=== PATIENT | male | born 1950 | race Caucasian/White ===

== ENCOUNTER → 2017-02-24 | Outpatient (CLI) | payer MEDICARE ==
[~2017-02-24] MED LIST: ATOR20TA9 PO; CARV-39 PO; FURO20TA3 PO; HYDR-3307 PO; LISI-167 PO; METO50TA82 PO; REGADENOSON 0.4 MG/5 ML SYRINGE ONE
== END | disposition home or self-care (01) ==
LOC: CFH 07:21
PROVIDERS: ATTEND Internal Medicine Cardiovascular Disease
DX: I35.8 Other nonrheumatic aortic valve disorders (principal); I37.1 Nonrheumatic pulmonary valve insufficiency; I25.10 Atherosclerotic heart disease of native coronary artery without angina pectoris; I25.5 Ischemic cardiomyopathy; I10 Essential (primary) hypertension; E78.5 Hyperlipidemia, unspecified; Z79.01 Long term (current) use of anticoagulants; Z95.1 Presence of aortocoronary bypass graft; Z87.891 Personal history of nicotine dependence
CPT/HCPCS: 78452; 93017; 93306; A9502; J2785

== ENCOUNTER → 2017-03-17 | Outpatient (CLI) | payer MEDICARE ==
[~2017-03-17] MED LIST changes: -REGADENOSON 0.4 MG/5 ML SYRINGE ONE
== END | disposition home or self-care (01) ==
LOC: PETCFH 09:35
PROVIDERS: ATTEND Internal Medicine Cardiovascular Disease
DX: I25.5 Ischemic cardiomyopathy (principal)
CPT/HCPCS: 78472; A9560

== ENCOUNTER 2017-03-24 09:49 | Inpatient (IN) | payer MEDICARE ==
[~2017-03-24] VITALS: Ht 172.7 cm; Wt 75.9 kg
[2017-03-24] MEDS ORDERED: SODIUM CHLORIDE FLUSH 10ML SYR IVF ONE (10:30)
[2017-03-24 10:58] LABS: HEMATOCRIT 39.5 % (39.2-51.8); HEMOGLOBIN 13.5 g/dL (13.7-18.0); WHITE BLOOD COUNT 8.5 x10^3/uL (3.4-10)
[2017-03-24 11:11] LABS: BLOOD UREA NITROGEN 18 mg/dL (7-18)
[2017-03-24 11:17] LABS: ASPARTATE AMINO TRANSFERASE 23 U/L (15-37)
[2017-03-24 11:18] LABS: IS PT STATUS REG ER OR PRE ER? YES
[2017-03-24] MEDS ORDERED: ASPI-496 PO (11:56)
[2017-03-24] MEDS ORDERED: ATOR-2 PO (11:57)
[2017-03-24] MEDS ORDERED: SODIUM CHLORIDE FLUSH 10ML SYR IVF PRN (13:00)
[2017-03-24] MEDS ORDERED: ONDANSETRON ODT 4 MG PO PRN (14:00)
[2017-03-24] MEDS ORDERED: DOCUSATE 100 MG CAPSULE PO PRN (14:00)
[2017-03-24] MEDS ORDERED: HYDROcodone/APAP 10/325 MG TABLET PO SCH ×2 (14:00→15:00)
[2017-03-24] MEDS ORDERED: LORazepam 2 MG/ML, 1ML IVPush PRN (14:00)
[2017-03-24] MEDS: ASPIRIN 325 MG TABLET PO SCH (14:00)
[2017-03-24 14:23] LABS: IS PT STATUS REG ER OR PRE ER? NO
[2017-03-24] MEDS ORDERED: HYDROcodone/APAP 10/325 MG TABLET PO PRN (15:00)
[2017-03-24 19:32] VITALS: BP 138/83
[2017-03-24] MEDS: CARVEDILOL 25 MG TABLET PO SCH (21:21)
[2017-03-24] MEDS: ATORVASTATIN 80 MG TABLET PO SCH (21:21)
[2017-03-24] MEDS: ENOXAPARIN 40 MG/0.4 ML SQ SCH (21:22)
[2017-03-25 01:57] VITALS: BP 123/80
[2017-03-25] MEDS: ASPIRIN 325 MG TABLET PO SCH (04:38)
[2017-03-25 05:51] LABS: HEMATOCRIT 41.7 % (39.2-51.8); HEMOGLOBIN 14.4 g/dL (13.7-18.0); WHITE BLOOD COUNT 7.7 x10^3/uL (3.4-10)
[2017-03-25 06:12] LABS: BLOOD UREA NITROGEN 17 mg/dL (7-18)
[2017-03-25 08:10] VITALS: BP 115/79
[2017-03-25] MEDS: POTASSIUM CHLORIDE 10 MEQ TABLET.ER PO SCH (09:04)
[2017-03-25] MEDS: FUROSEMIDE 20 MG TABLET PO SCH (09:04)
[2017-03-25] MEDS: CARVEDILOL 25 MG TABLET PO SCH ×2 (09:04→21:50)
[2017-03-25] MEDS: METOPROLOL TARTRATE 50 MG TABLET PO SCH (09:05)
[2017-03-25] MEDS: LISINOPRIL 10 MG TABLET PO SCH (09:05)
[2017-03-25] MEDS: CLOPIDOGREL 75 MG TABLET PO SCH (12:18)
[2017-03-25 14:35] VITALS: BP 142/78
[2017-03-25 20:38] VITALS: BP 122/72
[2017-03-25] MEDS: ENOXAPARIN 40 MG/0.4 ML SQ SCH (21:50)
[2017-03-25] MEDS: ATORVASTATIN 80 MG TABLET PO SCH (21:50)
[2017-03-26 01:30] VITALS: BP 116/76
[2017-03-26] MEDS: ASPIRIN 325 MG TABLET PO SCH (05:17)
[2017-03-26 05:18] VITALS: BP 122/70
[2017-03-26 05:56] LABS: HEMATOCRIT 41.8 % (39.2-51.8); HEMOGLOBIN 14.4 g/dL (13.7-18.0); WHITE BLOOD COUNT 7.3 x10^3/uL (3.4-10)
[2017-03-26 06:06] LABS: BLOOD UREA NITROGEN 18 mg/dL (7-18)
[2017-03-26 07:49] VITALS: BP 122/82
[2017-03-26] MEDS: METOPROLOL TARTRATE 50 MG TABLET PO SCH (07:52)
[2017-03-26] MEDS ORDERED: MIDAZOLAM 1 MG/ML, 2ML ONE (08:05)
[2017-03-26] MEDS ORDERED: FENTANYL PF 100 MCG/2ML ONE ×3 (08:05→11:37)
[2017-03-26] MEDS ORDERED: ROCURONIUM 10 MG/ML,10ML ONE ×4 (08:11→08:38)
[2017-03-26] MEDS ORDERED: ONDANSETRON 2MG/ML, 2ML ONE (08:11)
[2017-03-26] MEDS ORDERED: GLYCOPYRROLATE 0.2MG/1ML, 5ML ONE (08:11)
[2017-03-26] MEDS ORDERED: CEFAZOLIN 1,000 MG ONE (08:11)
[2017-03-26] MEDS ORDERED: SUCCINYLCHOLINE 20 MG/ML, 10ML ONE (08:11)
[2017-03-26] MEDS ORDERED: PROPOFOL 10 MG/ML, 20ML ONE (08:11)
[2017-03-26] MEDS ORDERED: DEXAMETHASONE 4 MG/ML, 1ML ONE (08:11)
[2017-03-26] MEDS ORDERED: NEOSTIGMINE 1 MG/ML, 10ML ONE (08:11)
[2017-03-26] MEDS ORDERED: PROTAMINE SULFATE 10 MG/ML, 5ML ONE (08:17)
[2017-03-26] MEDS ORDERED: LIDOCAINE/PF 1%, 30ML ONE (08:17)
[2017-03-26] MEDS ORDERED: PAPAVERINE 30 MG/ML, 2ML ONE (08:17)
[2017-03-26] MEDS ORDERED: BACITRACIN 50,000 UNIT ONE (08:18)
[2017-03-26] MEDS ORDERED: HEPARIN 1,000 UNITS/ML, 10ML ONE (08:18)
[2017-03-26] MEDS ORDERED: THROMBIN 20,000 UNIT VIAL TP ONE (08:18)
[2017-03-26] MEDS ORDERED: EPINEPHRINE 1 MG/ML, 1ML ONE (08:24)
[2017-03-26] MEDS ORDERED: BUPIVACAINE/PF 0.5% ONE (08:24)
[2017-03-26] MEDS ORDERED: EPHEDRINE 50 MG/ML, 1ML ONE (08:38)
[2017-03-26] MEDS: CARVEDILOL 25 MG TABLET PO SCH (09:00)
[2017-03-26] MEDS: CLOPIDOGREL 75 MG TABLET PO SCH (09:00)
[2017-03-26] MEDS: LISINOPRIL 10 MG TABLET PO SCH (09:00)
[2017-03-26] MEDS: FUROSEMIDE 20 MG TABLET PO SCH (09:00)
[2017-03-26] MEDS ORDERED: EPHEDRINE 50 MG/ML, 1ML IVPush PRN (10:30)
[2017-03-26] MEDS ORDERED: HYDROmorphone 1 MG/ML, 1ML IV PRN (10:30)
[2017-03-26] MEDS ORDERED: ALBUTEROL/IPRATROPIUM 2.5MG/0.5MG, 3 ML NPPB PRN (10:30)
[2017-03-26] MEDS ORDERED: ONDANSETRON 2MG/ML, 2ML IVPush PRN (10:30)
[2017-03-26] MEDS ORDERED: ALBUTEROL SULFATE 2.5 MG/3 ML NPPB PRN (10:30)
[2017-03-26] MEDS ORDERED: HYDROcodone/APAP 7.5-325MG/15ML UDC PO PRN (10:30)
[2017-03-26] MEDS ORDERED: OXYcodone 5 MG/5 ML ORAL.SOL UDC PO PRN (10:30)
[2017-03-26] MEDS ORDERED: PROMETHAZINE 25 MG/ML, 1ML IV PRN (10:30)
[2017-03-26] MEDS ORDERED: DIAZEPAM 5 MG/ML, 2ML IVPush PRN (10:30)
[2017-03-26] MEDS ORDERED: METOPROLOL 1 MG/ML, 5ML IV PRN (10:30)
[2017-03-26] MEDS ORDERED: MEPERIDINE/PF 25MG/0.5ML IVPush PRN (10:30)
[2017-03-26] MEDS ORDERED: hydrALAzine 20 MG/ML, 1ML IV PRN (10:30)
[2017-03-26] MEDS ORDERED: MIDAZOLAM 1 MG/ML, 2ML IV PRN (10:30)
[2017-03-26] MEDS ORDERED: LABETALOL 5MG/ML, 20ML IV PRN (10:30)
[2017-03-26] MEDS ORDERED: ACETAMINOPHEN 325 MG TABLET PO PRN (10:30)
[2017-03-26] MEDS: LACTATED RINGERS 1,000 ML IV SCH ×2 (11:30→22:27)
[2017-03-26] MEDS ORDERED: LABETALOL 5MG/ML 40ML VIAL IVPush PRN (11:30)
[2017-03-26] MEDS ORDERED: OXYcodone 5 MG/5 ML ORAL.SOL UDC ONE (11:37)
[2017-03-26] MEDS ORDERED: ACETAMINOPHEN 650 MG/20.3 ML UDC ONE (11:37)
[2017-03-26] MEDS: FENTANYL PF 100 MCG/2ML IV PRN ×2 (11:41→13:20)
[2017-03-26] MEDS: POTASSIUM CHLORIDE 10 MEQ TABLET.ER PO SCH (14:45)
[2017-03-26] MEDS: HYDROcodone/APAP 5/325 TABLET PO PRN ×2 (14:45→20:35)
[2017-03-26 15:05] VITALS: BP 124/78
[2017-03-26 20:26] VITALS: BP 105/68
[2017-03-26] MEDS: ATORVASTATIN 80 MG TABLET PO SCH (20:35)
[2017-03-26] MEDS: ENOXAPARIN 40 MG/0.4 ML SQ SCH (20:36)
[2017-03-27 00:46] VITALS: BP 108/66
[2017-03-27 05:16] LABS: HEMATOCRIT 37.2 % (39.2-51.8); HEMOGLOBIN 12.7 g/dL (13.7-18.0); WHITE BLOOD COUNT 12.1 x10^3/uL (3.4-10)
[2017-03-27 05:17] LABS: BLOOD UREA NITROGEN 18 mg/dL (7-18)
[2017-03-27] MEDS: ASPIRIN 325 MG TABLET PO SCH (05:35)
[2017-03-27 05:37] VITALS: BP 104/58
[2017-03-27 07:00] VITALS: BP 104/62
[2017-03-27] MEDS: LACTATED RINGERS 1,000 ML IV SCH (07:42)
[2017-03-27] MEDS: POTASSIUM CHLORIDE 10 MEQ TABLET.ER PO SCH (07:49)
[2017-03-27] MEDS: FUROSEMIDE 20 MG TABLET PO SCH (07:49)
[2017-03-27] MEDS: CLOPIDOGREL 75 MG TABLET PO SCH (07:49)
[2017-03-27] MEDS ORDERED: POTA10TA5 PO (11:56)
[2017-03-27] MEDS ORDERED: CLOP75TA PO (11:56)
== END 2017-03-27 13:22 | disposition home or self-care (01) | DRG 38 ==
LOC: ED 10:25 → EDIP 12:51 → 4WST 14:13
PROVIDERS: ADMIT Internal Medicine; ATTEND Internal Medicine
PROC: 03UL0JZ Supplement Left Internal Carotid Artery with Synthetic Substitute, Open Approach (ICD-10-PCS; 2017-03-26)
PROC: 03CL0ZZ Extirpation of Matter from Left Internal Carotid Artery, Open Approach (ICD-10-PCS; principal; 2017-03-26 08:30)
DX: I65.22 Occlusion and stenosis of left carotid artery (principal); R71.0 Precipitous drop in hematocrit; D17.79 Benign lipomatous neoplasm of other sites; G45.9 Transient cerebral ischemic attack, unspecified; E78.5 Hyperlipidemia, unspecified; I10 Essential (primary) hypertension; I25.10 Atherosclerotic heart disease of native coronary artery without angina pectoris; R97.20 Elevated prostate specific antigen [PSA]; F12.90 Cannabis use, unspecified, uncomplicated; I73.9 Peripheral vascular disease, unspecified; Z95.1 Presence of aortocoronary bypass graft; I25.2 Old myocardial infarction; Z87.891 Personal history of nicotine dependence; Z79.82 Long term (current) use of aspirin
CPT/HCPCS: 36415; 70450; 70553; 71010; 80048; 80053; 80061; 83735; 84100; 84484; 85025; 85610; 85730; 93005; 93308; 93321; 93325; 93880; 99285; C1729; J0171; J0690; J1100; J1644; J1650; J2250; J2405; J2704; J2710; J2720; J3010; J3490; Q0162; C1781; J0330; J2060; J2440

== ENCOUNTER 2018-05-23 08:00 | Outpatient (CLI) | payer MEDICARE ==
[~2018-05-23 08:00] MED LIST changes: +ASPI-496 PO; +ATOR-2 PO; +ATOR20TA37 PO; -ATOR20TA9 PO; +CLOP75TA PO; +POTA10TA5 PO
== END 2018-05-23 23:59 | disposition home or self-care (01) ==
LOC: SUSANVILLE 08:00
PROVIDERS: ATTEND Internal Medicine Cardiovascular Disease
DX: I08.3 Combined rheumatic disorders of mitral, aortic and tricuspid valves (principal); I25.10 Atherosclerotic heart disease of native coronary artery without angina pectoris; I25.2 Old myocardial infarction; Z95.5 Presence of coronary angioplasty implant and graft
CPT/HCPCS: 93306

== ENCOUNTER → 2018-10-04 | Outpatient (CLI) | payer MEDICARE | END | disposition home or self-care (01) | LOC: SUSANVILLE 08:00 | PROVIDERS: ATTEND Internal Medicine Cardiovascular Disease | DX: I08.2 Rheumatic disorders of both aortic and tricuspid valves (principal); Z95.1 Presence of aortocoronary bypass graft | CPT/HCPCS: 93306 ==

== ENCOUNTER → 2020-08-02 | Outpatient (CLI) | payer MEDICARE ==
[~2020-08-02] MED LIST changes: +HYDR-3248 PO; -HYDR-3307 PO
== END | disposition home or self-care (01) ==
LOC: CFH 09:31
PROVIDERS: ATTEND Internal Medicine Cardiovascular Disease
DX: I08.1 Rheumatic disorders of both mitral and tricuspid valves (principal); I25.5 Ischemic cardiomyopathy; I25.10 Atherosclerotic heart disease of native coronary artery without angina pectoris; Z95.1 Presence of aortocoronary bypass graft
CPT/HCPCS: 93306